=== PATIENT | male | born 1990 | race Caucasian/White ===

== ENCOUNTER 2017-01-13 03:38 | Emergency (ER) | payer OTHER ==
[2017-01-13 04:05] VITALS: BP 131/97; TEMP 98.2; BMI 32.3
--- NOTE | 2017-01-13 04:07 | PDOC ---
History of Present Illness - General History Source: Patient Exam Limitations: No Limitations - History of Present Illness Initial Comments: 01/13/17 04:40 The patient is a 26 year old male, with a significant past medical history of, who presents to the emergency department with, nausea and vomiting beginning tonight. Patient reports going out to celebrate and mixing a significant amount of alcohol. He reports multiple episodes of bilious emesis. He reports eating an hour prior to drinking. He denies any recent fevers, headache or dizziness. He denies any recent diarrhea or constipation. He denies any recent chest pain or shortness of breath. He denies any recent dysuria, frequency, urgency or hematuria. Allergies: Shrimp. Past surgical history: None reported. Familial: Hypertension. Social History: Nonsmoker. Denies recreational drug use. <Yuniel Choi - Last Filed: 01/13/17 04:40> <Krissy Farah - Last Filed: 01/14/17 06:13> - General Chief Complaint: Nausea/Vomiting Stated Complaint: VOMITING Time Seen by Provider: 01/13/17 04:01 Past History <Yuniel Choi - Last Filed: 01/13/17 04:40> - Past Medical History COPD: No - Suicide/Smoking/Psychosocial Hx Smoking History: Unknown if ever smoked Have you smoked in the past 12 months: No Information on smoking cessation initiated: No Hx Alcohol Use: No Drug/Substance Use Hx: No <Krissy Farah - Last Filed: 01/14/17 06:13> - Past Medical History Allergies/Adverse Reactions: Allergies Allergy/AdvReac Type Severity Reaction Status Date / Time shrimp Allergy Verified 01/13/17 04:03 Home Medications: Ambulatory Orders NK [No Known Home Medication] 01/13/17 Review of Systems - Review of Systems Able to Perform ROS?: Yes Comments:: 01/13/17 04:51 GENERAL/CONSTITUTIONAL: No fever. No weakness. HEAD, EYES, EARS, NOSE AND THROAT: No change in vision. No ear pain or discharge. No sore throat. CARDIOVASCULAR: No chest pain or shortness of breath. RESPIRATORY: No cough, wheezing, or hemoptysis. GASTROINTESTINAL: +Nausea. +Vomiting. No diarrhea or constipation. GENITOURINARY: No dysuria, frequency, or change in urination. MUSCULOSKELETAL: No joint or muscle swelling or pain. No neck or back pain. SKIN: No rash NEUROLOGIC: No headache, vertigo, loss of consciousness, or change in strength/ sensation. ENDOCRINE: No increased thirst. No abnormal weight change. HEMATOLOGIC/LYMPHATIC: No anemia, easy bleeding, or history of blood clots. ALLERGIC/IMMUNOLOGIC: No hives or skin allergy. All Other Systems: Reviewed and Negative <Yuniel Choi - Last Filed: 01/13/17 04:40> *Physical Exam - Vital Signs Last Vital Signs Temp Pulse Resp BP Pulse Ox 98.2 F 98 H 22 131/97 100 01/13/17 03:47 01/13/17 03:47 01/13/17 03:47 01/13/17 03:47 01/13/17 03:47 - Physical Exam Comments: 01/13/17 04:52 GENERAL: Awake, alert, and fully oriented, in no acute distress HEAD: No signs of trauma EYES: PERRLA, EOMI, sclera anicteric, conjunctiva clear ENT: Auricles normal inspection, hearing grossly normal, nares patent, oropharynx clear without exudates. Moist mucosa NECK: Normal ROM, supple, no lymphadenopathy, JVD, or masses LUNGS: Breath sounds equal, clear to auscultation bilaterally. No wheezes, and no crackles HEART: Regular rate and rhythm, normal S1 and S2, no murmurs, rubs or gallops ABDOMEN: Soft, nontender, normoactive bowel sounds. No guarding, no rebound. No masses EXTREMITIES: Normal range of motion, no edema. No clubbing or cyanosis. No cords, erythema, or tenderness NEUROLOGICAL: Cranial nerves II through XII grossly intact. Normal speech, normal gait SKIN: Warm, Dry, normal turgor, no rashes or lesions noted. <Yuniel Choi - Last Filed: 01/13/17 04:40> - Vital Signs Last Vital Signs Temp Pulse Resp BP Pulse Ox 98.2 F 98 H 22 131/97 100 01/13/17 03:47 01/13/17 03:47 01/13/17 03:47 01/13/17 03:47 01/13/17 03:47 <Krissy Farah - Last Filed: 01/14/17 06:13> ED Treatment Course - LABORATORY CBC & Chemistry Diagram: 01/13/17 04:05 01/13/17 04:05 - ADDITIONAL ORDERS Additional order review: Laboratory Results 01/13/17 01/13/17 01/13/17 04:05 04:05 04:05 PT with INR 12.50 H INR 1.11 Sodium 143 Potassium 4.2 Chloride 107 Carbon Dioxide 24 Anion Gap 12 BUN 14 Creatinine 1.3 Creat Clearance w eGFR > 60 Random Glucose 134 H Calcium 9.0 Total Bilirubin 0.1 L AST 26 ALT 78 Alkaline Phosphatase 70 Total Protein 8.4 H Albumin 4.6 Lipase 134 Alcohol, Quantitative 166.1 H* 01/13/17 04:05 RBC 5.84 H MCV 78.0 L MCHC 32.3 RDW 14.1 MPV 7.8 Neutrophils % 76.0 Lymphocytes % 19.0 Monocytes % 3.1 L Eosinophils % 1.1 Basophils % 0.8 - Medications Given in the ED: ED Medications Discontinued Medications Generic Name Dose Route Start Last Admin Trade Name Nadeemq PRN Reason Stop Dose Admin Ondansetron HCl 8 mg 01/13/17 04:23 01/13/17 04:23 Zofran Injection IVPUSH 01/13/17 04:24 8 mg NOW ONE Administration <Yuniel Choi - Last Filed: 01/13/17 04:40> - LABORATORY CBC & Chemistry Diagram: 01/13/17 04:05 01/13/17 04:05 <Krissy Farah - Last Filed: 01/14/17 06:13> Medical Decision Making - Medical Decision Making 01/14/17 06:12 Pt was celebrating the taking of the [facility] exam and he states that he went out drinking with family and friends and he had too much to drink. Pt has no other complaints. He has been vomiting since drinking so much. But he has no pains. His family wants him checked out. Exam is normal. Pt was hydrated and labs are normal. <Krissy Farah - Last Filed: 01/14/17 06:13> *DC/Admit/Observation/Transfer - Attestations Scribe Attestion: 01/13/17 04:52 Documentation prepared by Yuniel Choi, acting as medical secretary teacher for Krissy Farah MD. <Yuniel Choi - Last Filed: 01/13/17 04:40> - Discharge Dispostion Admit: No <Krissy Farah - Last Filed: 01/14/17 06:13> Diagnosis at time of Disposition: Alcohol poisoning - Discharge Dispostion Disposition: HOME Condition at time of disposition: Stable - Patient Instructions Printed Discharge Instructions: Delirium Tremens, Alcohol Use Disorder, DI for Vomiting -- Adult, DI for Alcohol Poisoning
[2017-01-13 04:11] LABS: BASOPHIL 0.8 % (0-2.0); EOSINOPHIL 1.1 % (0-4.5); MCH 25.2 pg (25.7-33.7); MCHC 32.3 g/dl (32.0-35.9); MEAN PLT VOLUME 7.8 fl (7.5-11.1); PLATELET COUNT 279 K/MM3 (134-434); RDW 14.1 % (11.9-15.9); WHITE BLOOD COUNT 15.2 K/mm3 (4.0-10.0)
[2017-01-13] MEDS ORDERED: ONDANSETRON 4 MG/2 ML VIAL ONE (04:20)
[2017-01-13] MEDS ORDERED: ONDANSETRON 4 MG/2 ML VIAL IVPUSH ONE (04:23)
[2017-01-13] MEDS ORDERED: SODIUM CHLORIDE 1,000 ML IV ONE ×2 (04:23→04:24)
[2017-01-13 04:24] LABS: INR 1.11 (0.82-1.09); PROTHROMBIN TIME (PATIENT) 12.5 SEC (9.98-11.88)
[2017-01-13 04:33] LABS: ALBUMIN 4.6 g/dl (3.4-5.0); ALK PHOS 70 U/L (45-117); ANION GAP 12 (8-16); BILIRUBIN,TOTAL 0.1 mg/dL (0.2-1.0); CO2 24 mmol/L (21-32); CREATININE 1.3 mg/dL (0.7-1.3); GLUCOSE,RANDOM 134 mg/dL (74-106); SGOT/AST 26 U/L (15-37); SGPT/ALT 78 U/L (12-78); TOT PROT 8.4 g/dl (6.4-8.2)
[2017-01-13 05:50] VITALS: PULSE 92
== END 2017-01-13 05:51 | disposition home or self-care (01) ==
LOC: JER 03:38
DX: T51.0X1A Toxic effect of ethanol, accidental (unintentional), initial encounter (principal); R11.2 Nausea with vomiting, unspecified; Y92.59 Other trade areas as the place of occurrence of the external cause
CPT/HCPCS: 36415; 80053; 80307; 83690; 85025; 85610; 99283-25